=== PATIENT | male | born 1995 ===

== ENCOUNTER 2022-07-18 23:36 | Emergency (ER) | payer MEDICAID ==
[2022-07-19] MEDS ORDERED: Sodium Chloride 0.9% 1,000 ML IV ONE (00:01)
[2022-07-19] MEDS ORDERED: Glucagon,Human Recombinant 1 MG Vial IM PRN ×2 (00:08→00:09)
[2022-07-19] MEDS ORDERED: 50% Dextrose in Water 50 ML Syringe IVPUSH PRN ×2 (00:08→00:09)
[2022-07-19] MEDS ORDERED: Insulin Regular, Human 100 Units/ML 3 ML Vial IV ONE (00:09)
[2022-07-19] MEDS ORDERED: Insulin Lispro 100 Units/ML 3 ML Vial SUBCUT SCH (00:10)
[2022-07-19] MEDS ORDERED: NS + KCl 20mEq/L 500 ML IV SCH (00:15)
[2022-07-19 00:35] LABS: CHLORIDE,CL 94 mmol/L (98-107); SODIUM,NA 136 mmol/L (136-145)
[2022-07-19 00:36] LABS: ANION GAP 31.7 meq/L (7-15); ESTIMATED GFR 64 mL/min (>=60)
[2022-07-19 01:49] LABS: BARBITURATE SCREEN,URINE NEGATIVE (NEGATIVE); BENZODIAZEPINES SCREEN,URINE NEGATIVE (NEGATIVE); EDDP,URINE SCREEN NEGATIVE (NEGATIVE); TCA SCREEN,URINE NEGATIVE (NEGATIVE); THC SCREEN,URINE 50 NG/ML NEGATIVE (NEGATIVE)
[2022-07-19 01:55] LABS: BUPRENORPHINE SCREEN,URINE NEGATIVE (NEGATIVE)
== END 2022-07-19 02:05 | disposition home or self-care (01) ==
LOC: LL.ED 23:36
DX: E10.65 Type 1 diabetes mellitus with hyperglycemia (principal); F17.210 Nicotine dependence, cigarettes, uncomplicated; Z88.0 Allergy status to penicillin; Z91.013 Allergy to seafood; Z79.4 Long term (current) use of insulin
CPT/HCPCS: 36415; 80053; 80305; 81003; 82947; 83605; 85025; 96361; 96365; 96372; 96375; 99284; J1815; J3480; J7030